=== PATIENT | female | born 1990 | race African-American/Black ===

== ENCOUNTER 2022-01-22 06:06 | Inpatient (IN) ==
[2022-01-22] MEDS ORDERED: CARBOPROST TROMETHAMINE 250 MCG/ML AMP IM PRN (06:18)
[2022-01-22] MEDS ORDERED: OXYTOCIN/LR 20 UNIT/1,000 ML BAG IV ONE ×2 (06:18→17:39)
[2022-01-22] MEDS ORDERED: FAMOTIDINE 20 MG/2 ML VIAL IV PRN (06:18)
[2022-01-22] MEDS ORDERED: miSOPROStoL 200 MCG TABLET RECTAL PRN (06:18)
[2022-01-22] MEDS ORDERED: BUTORPHANOL 2 MG/ML VIAL IV PRN (06:18)
[2022-01-22] MEDS ORDERED: MEPERIDINE 50 MG/1 ML VIAL IV PRN ×2 (06:18)
[2022-01-22] MEDS ORDERED: TRANEXAMIC ACID 1,000 MG in SODIUM CHLORIDE 0.9% 100 ML IV PRN (06:18)
[2022-01-22] MEDS ORDERED: ACETAMINOPHEN 500 MG TABLET PO PRN (06:18)
[2022-01-22] MEDS ORDERED: LACTATED RINGERS 500 ML IV PRN (06:18)
[2022-01-22] MEDS ORDERED: METHYLERGONOVINE 0.2 MG/1 ML AMP IM PRN (06:18)
[2022-01-22] MEDS ORDERED: BUTORPHANOL 1 MG/ML VIAL IV PRN (06:18)
[2022-01-22] MEDS ORDERED: OXYTOCIN/LR 20 UNIT/1,000 ML BAG IV SCH (06:30)
[2022-01-22] MEDS ORDERED: LACTATED RINGERS 1,000 ML IV SCH (06:30)
[2022-01-22 07:01] LABS: Basophils % 0.4 % (0.0-0.8); Eosinophils # 0.1 10*3/uL (0.0-0.87); Eosinophils % 0.8 % (0.00-10.9); Hematocrit 35.5 VOL% (35.7-47.0); Hemoglobin 11.7 GM/DL (12.0-16.0); Immature Granulocytes % 1.1 %; Immature Granulocytes Absolute 0.09 #; Lymphocytes # 2.6 10*3/uL (1.4-4.0); Lymphocytes % 30.8 % (21.3-54.2); Mean Corpuscular Volume 84.7 FL (87-102); Monocytes # 0.5 10*3/uL (0.11-0.8); Monocytes % 5.9 % (1.7-12.7); Platelet Count 142 T/CUMM (130-400); Red Blood Count 4.19 MC/CUMM (3.8-5.5); Red Cell Distribution Width 14.4 % (9.3-17.3); White Blood Count 8.4 T/CUMM (4-12)
[2022-01-22 07:23] LABS: Alanine Aminotransferase 19 U/L (13-56); Albumin 2.6 G/DL (3.4-5.0); Alkaline Phosphatase 190 U/L (45-117); Aspartate Amino Transferase 19 U/L (0-37); Bilirubin,Total < 0.39 MG/DL (0.20-1.00); Blood Urea Nitrogen 9 MG/DL (7-18); Carbon Dioxide 20 MMOL/L (21-32); Chloride 108 MMOL/L (98-107); Glucose 117 MG/DL (74-106); Osmolality,Calculated 274.7 MOS/KG (273-304); Potassium 3.7 MMOL/L (3.5-5.1); Sodium 138 MMOL/L (136-145); Total Protein 7.4 G/DL (6.4-8.2)
[2022-01-22] MEDS: ONDANSETRON 4 MG/2 ML VIAL IV PRN ×3 (07:47→21:34)
[2022-01-22] MEDS ORDERED: PROMETHAZINE 25 MG/1 ML VIAL IM ONE (08:58)
[2022-01-22] MEDS ORDERED: hydrOXYzine HCL 25 MG/1 ML VIAL IM PRN (08:58)
[2022-01-22] MEDS ORDERED: NALOXONE 0.4 MG/ML VIAL IV PRN (08:58)
[2022-01-22] MEDS ORDERED: LACTATED RINGERS 1,000 ML IV ONE (08:58)
[2022-01-22] MEDS ORDERED: diphenhydrAMINE 50 MG/1 ML VIAL IV PRN ×2 (08:58)
[2022-01-22] MEDS ORDERED: FAMOTIDINE 20 MG/2 ML VIAL IV ONE (08:58)
[2022-01-22] MEDS ORDERED: CITRIC ACID/SODIUM CITRATE 30 ML UDCUP PO ONE (08:58)
[2022-01-22] MEDS ORDERED: ePHEDrine 50 MG/ML VIAL IV PRN (08:58)
[2022-01-22] MEDS ORDERED: fentaNYL 2 MCG/ROPIV 0.2% EPID 100 ML EPIDURAL SCH (09:00)
[2022-01-22 10:50] LABS: Bilirubin,Urine Negative (Negative); Blood, Urine Trace mg/dL (Negative); Glucose,Urine (UA) Negative (Negative); Ketones,Urine Negative (Negative); Mucus,Urine Occasional /LPF (Occasional); Nitrite,Urine Negative (Negative); Protein,Urine Negative (Negative); Squamous Epithelial Cell,Urine Occasional /HPF (0-10); Urine Appearance Clear (Clear); Urine Color Yellow (Yellow); Urine Urobilinogen 0.2 eU/dL (<2.0)
[2022-01-22] MEDS ORDERED: METHYLERGONOVINE 0.2 MG/1 ML AMP ONE (16:00)
[2022-01-22] MEDS ORDERED: TRANEXAMIC ACID 1,000 MG/10 ML VIAL ONE (16:00)
[2022-01-22] MEDS ORDERED: CARBOPROST TROMETHAMINE 250 MCG/ML AMP IM ONE (16:00)
[2022-01-22] MEDS ORDERED: miSOPROStoL 200 MCG TABLET ONE (16:00)
[2022-01-22 17:38] LABS: Cord Venous Blood HCO3 21.5 MMOL/L; Cord Venous Blood PCO2 47.2 MMHG; Cord Venous Blood PO2 23.4
[2022-01-22] MEDS ORDERED: BISACODYL 10 MG SUPP RECTAL PRN (17:39)
[2022-01-22] MEDS ORDERED: ACETAMINOPHEN 325 MG TABLET PO PRN (17:39)
[2022-01-22] MEDS ORDERED: ONDANSETRON 4 MG/2 ML VIAL IV PRN (17:39)
[2022-01-22] MEDS ORDERED: HYDROCORTISONE 2.5% RECTAL CREAM 30 GM TUBE TOP PRN (17:39)
[2022-01-22] MEDS ORDERED: oxyCODONE/ACETAMINOPHEN 5-325 MG TABLET PO PRN (17:39)
[2022-01-22] MEDS ORDERED: BENZOCAINE 20%/MENTHOL 0.5% SPRAY 56 GM CAN TOP PRN (17:39)
[2022-01-22] MEDS ORDERED: DIPH/TET/ACEL PERT BOOSTER VACCINE 0.5 ML VIAL IM ONE (17:39)
[2022-01-22] MEDS ORDERED: WITCH HAZEL PADS 100/JAR TOP PRN (17:39)
[2022-01-22] MEDS ORDERED: LANOLIN 50% CREAM 0.3 OZ TUBE TOP PRN (17:39)
[2022-01-22] MEDS ORDERED: PRAMOXINE/HYDROCORTISONE RECTAL FOAM 10 GM CAN RECTAL PRN (17:41)
[2022-01-22] MEDS: oxyCODONE/ACETAMINOPHEN 5-325 MG TABLET PO PRN (19:20)
[2022-01-22] MEDS: IBUPROFEN 800 MG TABLET PO PRN (19:21)
[2022-01-22] MEDS: DOCUSATE SODIUM 100 MG CAPSULE PO SCH (20:56)
[2022-01-23] MEDS: IBUPROFEN 800 MG TABLET PO PRN ×2 (01:57→12:20)
[2022-01-23] MEDS: oxyCODONE/ACETAMINOPHEN 5-325 MG TABLET PO PRN (02:52)
[2022-01-23] MEDS ORDERED: ONDANSETRON 4 MG TABLET PO PRN (06:14)
[2022-01-23 06:37] LABS: Basophils % 0.3 % (0.0-0.8); Eosinophils # 0.1 10*3/uL (0.0-0.87); Hematocrit 26.7 VOL% (35.7-47.0); Hemoglobin 8.7 GM/DL (12.0-16.0); Immature Granulocytes % 0.7 %; Immature Granulocytes Absolute 0.07 #; Lymphocytes % 18.8 % (21.3-54.2); Mean Corpuscular HGB Conc 32.6 GM/DL (32-36); Mean Corpuscular Volume 86.1 FL (87-102); Monocytes # 0.6 10*3/uL (0.11-0.8); Monocytes % 6.1 % (1.7-12.7); Neutrophils % 73.1 % (38.7-73.9); Platelet Count 97 T/CUMM (130-400); Red Cell Distribution Width 14.4 % (9.3-17.3); White Blood Count 10.5 T/CUMM (4-12)
[2022-01-23 06:55] LABS: Hypochromia Slight; Microcytosis Slight
[2022-01-23] MEDS: MULTIVITAMIN (PRENATAL) TABLET PO SCH (10:54)
[2022-01-23] MEDS: DOCUSATE SODIUM 100 MG CAPSULE PO SCH ×2 (10:54→21:03)
[2022-01-23] MEDS: FERROUS SULFATE 325 MG TABLET PO SCH ×2 (10:54→21:03)
[2022-01-24] MEDS: MULTIVITAMIN (PRENATAL) TABLET PO SCH ×2 (07:56→12:29)
[2022-01-24] MEDS: DOCUSATE SODIUM 100 MG CAPSULE PO SCH ×2 (07:56→12:28)
[2022-01-24] MEDS: FERROUS SULFATE 325 MG TABLET PO SCH ×2 (07:56→12:29)
[2022-01-24] MEDS: oxyCODONE/ACETAMINOPHEN 5-325 MG TABLET PO PRN (07:57)
[2022-01-24 09:16] VITALS: BP 142/81
[2022-01-24] MEDS: IBUPROFEN 800 MG TABLET PO PRN (11:40)
== END 2022-01-24 13:40 | disposition home or self-care (01) | DRG 807 ==
LOC: N.LD 06:06 → N.OB 21:15
PROVIDERS: ADMIT Obstetrics & Gynecology; ATTEND Obstetrics & Gynecology